=== PATIENT | female | born 1975 | race Caucasian/White ===

== ENCOUNTER 2020-11-21 08:49 | Outpatient (REF) | payer OTHER, SELFPAY ==
[2020-11-21 11:26] LABS: MANUAL DIFF FLAG NO
[2020-11-21 11:33] LABS: Basophils Percent Auto 0.7 % (0-2); Eosinophils Absolute Auto 0.2 X10*3/uL (0.0-0.4); Eosinophils Percent Auto 3.7 % (0-4); Hematocrit 42.3 % (37-47); Imm Gran Abs Auto 0.02 X10*3/uL (0.00-0.03); Imm Gran Pct Auto 0.3 % (0.0-0.4); Lymphocytes Absolute Auto 2.1 X10*3/uL (1.2-4.9); Lymphocytes Percent Auto 36.9 % (20-40); Mean Corpuscular HGB Conc 33.1 g/dl (31.0-35.0); Mean Corpuscular Hemoglobin 29.2 pg (27.0-33.0); Mean Corpuscular Volume 88.3 fL (80-98); Mean Platelet Volume 11.1 fL (9.4-12.3); Monocytes Absolute Auto 0.4 X10*3/uL (0.1-1.2); Monocytes Percent Auto 7.3 % (2-11); Neutrophils Absolute Auto 2.9 X10*3/uL (2.0-8.3); Neutrophils Percent Auto 51.1 % (45-73); Platelet Count 182 X10*3/uL (160-400); Red Blood Count 4.79 X10*6/uL (4.20-5.50); Red Cell Distribution Width 12.8 % (11.0-16.0); White Blood Count 5.7 X10*3/uL (4.8-10.8)
[2020-11-21 12:18] LABS: Alanine Aminotransferase 14 U/L (0-31); Anion Gap 14 (12-20); Aspartate Amino Transferase 15 U/L (5-31); Blood Urea Nitrogen 17 mg/dL (9-16); Calcium 9.4 mg/dL (8.4-10.2); Carbon Dioxide 23 mmol/L (22-29); Chloride 105 mmol/L (96-108); Cholesterol 177 mg/dL; Estimated Glomerular Filt Rate > 60; Glucose Fasting 82 mg/dL (60-99); HDL Cholesterol 65 mg/dL; LDL Cholesterol Calculated 96 mg/dl; Potassium 4.3 mmol/L (3.3-5.1); Sodium 138 mmol/L (135-145); Triglycerides 81 mg/dL
[2020-11-21 12:40] LABS: Vitamin D 25-OH Total 24.4 ng/mL (>30)
== END 2020-11-21 08:50 | disposition home or self-care (01) ==
LOC: HO.HMGCLDS 08:49
PROVIDERS: PCP Internal Medicine; Visit Provider Internal Medicine
DX: Z00.00 Encounter for general adult medical examination without abnormal findings (principal); I10 Essential (primary) hypertension
CPT/HCPCS: 36415; 80048; 80061; 82306; 84450; 84460; 85025

== ENCOUNTER 2021-11-21 09:03 | Outpatient (REF) | payer OTHER, SELFPAY ==
[2021-11-21 11:26] LABS: MANUAL DIFF FLAG NO
[2021-11-21 11:34] LABS: Basophils Percent Auto 0.7 % (0-2); Eosinophils Absolute Auto 0.2 X10*3/uL (0.0-0.4); Eosinophils Percent Auto 4.1 % (0-4); Hematocrit 41.7 % (37.0-47.0); Hemoglobin 13.8 g/dl (12.0-16.0); Imm Gran Abs Auto 0.01 X10*3/uL (0.00-0.03); Imm Gran Pct Auto 0.2 % (0.0-0.4); Lymphocytes Percent Auto 37.1 % (20-40); Mean Corpuscular HGB Conc 33.1 g/dl (31.0-35.0); Mean Corpuscular Hemoglobin 29.2 pg (27.0-33.0); Mean Corpuscular Volume 88.3 fL (80.0-98.0); Mean Platelet Volume 10.9 fL (9.4-12.3); Monocytes Absolute Auto 0.5 X10*3/uL (0.1-1.2); Neutrophils Absolute Auto 2.6 x10*3/uL (2.0-8.3); Neutrophils Percent Auto 48.9 % (45-73); Platelet Count 178 X10*3/uL (160-400); Red Blood Count 4.72 X10*6/uL (4.20-5.50); Red Cell Distribution Width 13.2 % (11.0-16.0); White Blood Count 5.3 X10*3/uL (4.8-10.8)
[2021-11-21 11:56] LABS: Cholesterol 184 mg/dL; Glucose Fasting 92 mg/dL (60-99); HDL Cholesterol 51 mg/dL; LDL Cholesterol Calculated 120 mg/dl; Triglycerides 65 mg/dL
[2021-11-21 12:21] LABS: Vitamin D 25-OH Total 29.6 ng/mL (>30)
== END 2021-11-21 09:04 | disposition home or self-care (01) ==
LOC: HO.WFDLDS 09:03
PROVIDERS: Visit Provider Internal Medicine
DX: Z00.01 Encounter for general adult medical examination with abnormal findings (principal); R42 Dizziness and giddiness
CPT/HCPCS: 36415; 80061; 82306; 82947; 85025

== ENCOUNTER 2022-02-07 11:00 | Outpatient (RCR) | payer OTHER, SELFPAY ==
[2021-12-06 14:03] VITALS: BP 130/70; PULSE 90; O2SAT 97
== END 2022-02-20 15:20 | disposition home or self-care (01) ==
LOC: HO.PTWFD 11:00
PROVIDERS: PCP Internal Medicine; Visit Provider Internal Medicine
DX: M25.562 Pain in left knee (principal); R42 Dizziness and giddiness
CPT/HCPCS: 95992; 97110; 97140; 97161

== ENCOUNTER 2022-11-20 13:51 | Outpatient (AMB) | payer OTHER, SELFPAY ==
--- NOTE | 2022-11-20 14:00 | A.OFFPC_ITS ---
<Statement entered by Cynthia Barcenas MD - 09/04/25 00:13> This note has been administratively?closed. Vital Signs 11/20/22 14:01 Height 5 ft 2 in Weight 195 lb 6 oz BMI 35.7 BP 108/76 Blood Pressure Location Rt brachial Position Sitting Pulse 90 Pulse Source Pulse Oximeter Pulse Oximetry (%) 99 Oxygen Delivery Method Room Air Intake Visit Reasons: Annual PE Intake Note: Pt is here for her annual PE Is last menstrual period known: Yes Last menstrual period: 11/14/22 Allergies No Known Allergies Allergy (Verified 08/14/25 11:12) Medication List - Last Reconciled 11/20/22 by Cynthia Barcenas MD albuterol sulfate 90 mcg/actuation 2 puffs inhalation Q6H PRN cholecalciferol (vitamin D3) 125 mcg PO DAILY multivitamin 1 tab PO DAILY zinc 50 mg PO DAILY Tobacco use date assessed: 11/20/22 HPI Annual PE HPI Details 47-year-old lady here today for physical exam. She is up-to-date with her screening mammogram, done 10/09/2022 with negative findings. She also is up-to-date with her cervical cancer screening done 12/09/2021 at [facility] with negative findings as well. She still gets her periods regularly, due now for colon cancer screening. Would like to see if she can get Cologuard testing set of the colonoscopy screening. She gets occasional wheezing a after exercise, would like a refill on her albuterol inhaler. 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 1. Little interest or pleasure in doing things: not at all 2. Feeling down, depressed, or hopeless: not at all 3. Trouble falling or staying asleep, or sleeping too much: several days 4. Feeling tired or having little energy: several days 5. Poor appetite or overeating: several days 6. Feeling bad about yourself - or that you are a failure or have let yourself or your family down: not at all 7. Trouble concentrating on things, such as reading the newspaper or watching television: not at all 8. Moving or speaking so slowly that other people could have noticed. Or the opposite - being so fidgety or restless that you have been moving around a lot more than usual: not at all 9. Thoughts that you would be better off or of hurting yourself in some way: not at all Total score: 3 Depression Screening Interpretation: Negative 81840 - PHQ-9 Billing: Yes Source: Developed by Drs. James Stanton, Shannan Salgado, Blue Tong and colleagues, with an educational luis enrique from [employer]. Thrive Questionnaire Date Thrive assessed: 11/13/21 AUDIT C Alcohol Use Questionnaire (AUDIT-C) 1. How often do you have a drink containing alcohol?: Monthly or less 2. How many drinks containing alcohol do you have on a typical day when you are drinking?: 1 or 2 3. How often do you have six or more drinks on one occasion?: Never Total Score: 1 YUNIOR-7 AMB Questionnaire YUNIOR-7 Date YUNIOR - 7 assessed: 11/13/21 Feeling nervous, anxious, or on edge: 1 = Several days Not being able to stop or control worryin = Not at all Worrying too much about different things: 0 = Not at all Trouble relaxin = Not at all Being so restless that it is hard to sit still: 0 = Not at all Becoming easily annoyed or irritable: 0 = Not at all Feeling afraid as if something awful might happen: 0 = Not at all Total YUNIOR-7 score (0-4 normal; 5-9 mild; 10-14 moderate; 15-21 severe): 1 Source: Developed by Drs. James Stanton, Shannan Salgado, Blue Tong and colleagues, with an educational luis enrique from [employer]. YUNIOR-7 Assessment Billing YUNIOR-7 Assessment Tool: YUNIOR-7 Assessment 80920 Review of Systems Const Denies body aches, Denies fatigue, Denies fever(s), Denies headache(s) and D enies weakness Eyes Reports change in vision ( difficulty with reading), Denies eye discharge and Denies itchy eyes ENT Denies headache(s), Denies nasal congestion, Denies nasal discharge and Denies sore throat Card Denies chest pain, Denies palpitations and Denies dyspnea Resp Denies chest congestion, Denies cough, Denies dyspnea and Denies wheezing GI Denies abdominal pain, Denies change in bowel habits and Denies heartburn Denies urinary frequency, Denies dysuria and Denies urinary urgency Musc Reports as per HPI and Denies back pain Skin/Breast Denies lesions and Denies rash Neuro Denies headache(s) and Denies weakness Psych Reports as per HPI Endo Denies fatigue, Denies polydipsia, Denies polyuria and Denies palpitations Ronni/Lymph Denies easy bruising Aller/Immun Denies itchy eyes, Denies seasonal rhinorrhea and Denies wheezing Physical exam (Primary Care) Vital Signs: Last Vital Signs Pulse 90 11/20/22 14:01 BP 108/76 11/20/22 14:01 Pulse Ox 99 11/20/22 14:01 Oxygen Delivery Method Room Air 11/20/22 14:01 BMI result Body Mass Index 35.7 BMI Assessment/Plan discussion: High BMI High, discussed plan: lifestyle, weight reduction, dietary and physical activity Tobacco/Smoking Status: Tobacco use Status Tobacco use date assessed 11/20/22 11/20/22 14:05 Patient Tobacco Use Status Never used Tobacco 11/20/22 14:05 e-Cigarette/Vaping Use Never Used 11/20/22 14:05 PHQ-9: PHQ-9 Score PHQ-9: Total score 3 05/02/24 02:12 Depression Screening Interpretation: Negative Thrive Assessment: Date of Thrive Assessment Date Thrive assessed 11/13/21 11/20/22 14:05 Const General: healthy appearing, comfortable, no acute distress and alert Nutritional Appearance: obese Orientation/consciousness: patient oriented x3 Limitations: no limitations HENMT Head: Yes normocephalic and Yes atraumatic Ears: hearing grossly normal bilaterally, TM's normal bilaterally and EAC's normal General nose exam: Normal external nose present and No nasal discharge present Face and sinus: Yes face symmetric Mouth: Normal oral and palatal mucosa present and moist mucous membranes Eyes General: appearance normal, both eyes and all related structures Neck Neck: Yes full ROM, Yes no lymphadenopathy and Yes supple Thyroid: Thyroid normal Chest Breast/axilla palpation: normal palpation of the breasts and normal palpation of the axillae Resp Auscultation: clear to auscultation bilaterally Cardio Other: S1-S2 present regular rate and rhythm GI Palpation (GI): Soft to palpation, nontender, no guarding and no masses Auscultation: normal bowel sounds General: Yes no CVA tenderness Back/Spine/Pelvis Back: no CVA tenderness and No back tenderness Skin General skin exam: no rashes or lesions noted Neuro General: patient oriented x3, gait normal, tone normal, moves all extremities, Normal light touch and pain sensation, no focal motor deficits and CN's II-XI intact bilaterally Extrem General: Yes full ROM, Yes no joint enlargement, Yes no pedal edema and Yes normal gait Psych Appearance: grossly normal and well kempt Mental Status: mental status grossly normal Speech and movement: Normal speech and movement present Affect: normal affect Attitude: cooperative Thought process: Normal thought process present Thought content: Normal thought content present Coding Level of Care Code Admin Sign Off/No Billing Diagnoses Annual visit for general adult medical examination with abnormal findings Z00.01 Additional Codes YUNIOR-7 Assessment Billing - YUNIOR-7 Assessment Tool: YUNIOR-7 Assessment 61752 ([id number])
[2022-11-20 14:01] VITALS: BP 108/76; PULSE 90; O2SAT 99; BMI 35.7
== END 2022-11-20 14:43 | disposition home or self-care (01) ==
PROVIDERS: PCP Internal Medicine; Visit Provider Internal Medicine
DX: Z00.01 Encounter for general adult medical examination with abnormal findings (principal)
CPT/HCPCS: 99499

== ENCOUNTER 2022-12-08 07:44 | Outpatient (REF) | payer OTHER, SELFPAY ==
[2022-12-08 11:13] LABS: MANUAL DIFF FLAG NO
[2022-12-08 11:38] LABS: Basophils Percent Auto 0.6 % (0-2); Eosinophils Absolute Auto 0.3 X10*3/uL (0.0-0.4); Eosinophils Percent Auto 3.7 % (0-4); Hematocrit 40.9 % (37.0-47.0); Hemoglobin 13.6 g/dl (12.0-16.0); Imm Gran Abs Auto 0.03 X10*3/uL (0.00-0.03); Imm Gran Pct Auto 0.4 % (0.0-0.4); Lymphocytes Absolute Auto 2.2 X10*3/uL (1.2-4.9); Lymphocytes Percent Auto 30.6 % (20-40); Mean Corpuscular HGB Conc 33.3 g/dl (31.0-35.0); Mean Corpuscular Hemoglobin 28.9 pg (27.0-33.0); Mean Corpuscular Volume 86.8 fL (80.0-98.0); Mean Platelet Volume 11.1 fL (9.4-12.3); Monocytes Absolute Auto 0.5 X10*3/uL (0.1-1.2); Neutrophils Absolute Auto 4.1 x10*3/uL (2.0-8.3); Neutrophils Percent Auto 57.7 % (45-73); Platelet Count 153 X10*3/uL (160-400); Red Blood Count 4.71 X10*6/uL (4.20-5.50); Red Cell Distribution Width 12.9 % (11.0-16.0); White Blood Count 7.1 X10*3/uL (4.8-10.8)
== END 2022-12-08 07:45 | disposition home or self-care (01) ==
LOC: HO.WFDLDS 07:44
PROVIDERS: Visit Provider Internal Medicine
DX: Z00.01 Encounter for general adult medical examination with abnormal findings (principal)
CPT/HCPCS: 36415; 85025

== ENCOUNTER 2024-04-27 10:55 | Outpatient (AMB) | payer OTHER, SELFPAY ==
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
[2024-04-27 11:44] VITALS: BP 120/86; PULSE 86; O2SAT 97; BMI 36.8
== END 2024-04-27 12:23 | disposition home or self-care (01) ==
PROVIDERS: PCP Internal Medicine; Visit Provider Internal Medicine
DX: J45.990 Exercise induced bronchospasm (principal); J30.2 Other seasonal allergic rhinitis; Z71.89 Other specified counseling; Z00.01 Encounter for general adult medical examination with abnormal findings; F41.8 Other specified anxiety disorders; Z00.00 Encounter for general adult medical examination without abnormal findings

== ENCOUNTER → 2024-04-27 10:55 | Outpatient (BNVA) | payer OTHER, SELFPAY | PROVIDERS: PCP Internal Medicine; Visit Provider Internal Medicine | DX: Z00.01 Encounter for general adult medical examination with abnormal findings (principal); J45.990 Exercise induced bronchospasm; J30.2 Other seasonal allergic rhinitis; F41.8 Other specified anxiety disorders; Z71.89 Other specified counseling | CPT/HCPCS: 96127 ==

== ENCOUNTER 2025-06-17 08:59 | Outpatient (REF) | payer OTHER, SELFPAY ==
[2025-06-17 10:18] LABS: Cholesterol 168 mg/dL (<200); HDL Cholesterol 67 mg/dL (>40); Triglycerides 56 mg/dL (<150)
== END 2025-06-17 09:00 | disposition home or self-care (01) ==
LOC: HO.LAB 08:59
PROVIDERS: PCP Internal Medicine; Visit Provider Internal Medicine
DX: Z13.220 Encounter for screening for lipoid disorders (principal); Z13.1 Encounter for screening for diabetes mellitus; Z13.6 Encounter for screening for cardiovascular disorders
CPT/HCPCS: 36415; 80061; 82947

== ENCOUNTER 2025-06-19 12:57 | Outpatient (AMB) | payer OTHER, SELFPAY ==
--- NOTE | 2025-06-19 13:07 | MHC.PC.OV ---
Vital Signs 06/19/25 13:13 Height 5 ft 2 in Weight 193 lb BMI 35.3 BP 110/80 Blood Pressure Location Rt brachial Position Sitting Respiration 15 Pulse 72 Pulse Source Pulse Oximeter Temp 98.0 F Temp Source Oral Pulse Oximetry (%) 99 Oxygen Delivery Method Room Air Intake Visit Reasons: PE elizabeth 05/25 Intake Note: Pt is here today for her PE: last cologuard 03/07/25, papsmear 12/09/21, mammogram 10/18/2024 Budget Accountant Required: No Allergies No Known Allergies Allergy (Verified 04/27/24 11:55) Medication List - Last Reconciled 06/25/25 by Cynthia Barcenas MD albuterol sulfate 90 mcg/actuation 2 puffs inhalation Q6H PRN buspirone 5 mg PO TID multivitamin 1 tab PO DAILY zinc 50 mg PO DAILY Tobacco use date assessed: 06/19/25 Dental Screening Dental Screen Date: 06/19/25 Did you have a dental visit in the last 12 months?: Yes Did you have a dental problem in the last 6 months where you did not have access to dental care?: No Was dental information given to patient?: Patient has dentist HPI PE elizabeth 05/25 HPI Details The patient is a 50-year-old female presenting for her physical exam. The patient has been experiencing a prolonged grief reaction with symptoms of depression and anxiety since her partner of 24 years in October of this year. Her partner, who was 48, had a history of a significant drinking problem, which led to seizures from withdrawal and a fatal fall. 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 Her sleep is disrupted, with frequent awakenings throughout the night. The patient reports feelings of guilt related to having asked her partner to leave the home due to his violent behavior when intoxicated before he . She and her 12-year-old daughter are both in therapy to cope with the loss. In terms of health maintenance, the patient's Cologuard was negative and is not due until 2027, and her mammogram is up to date. Her last Pap smear was in 2021. She declines the COVID and influenza vaccines. She has a history of COVID-19 infection. Recent lab work showed improved cholesterol and blood sugar levels. The patient experienced significant weight loss due to stress, and is now more active than she used to be. The patient was sick a few weeks ago with a cough that has since resolved, but she has new-onset wheezing at night. [facility] Medical History Anxiety with depression Exercise induced bronchospasm Seasonal allergies Benign positional vertigo Personal history of COVID-19 Left anterior knee pain History of miscarriage Surgical History Hx of section Family History Father Alcoholism Essential hypertension Maternal Grandmother Lung cancer Maternal Grandfather Heart disease Social History Housing: House Alcohol intake: current Alcohol intake frequency: holidays/special occasions only Patient Tobacco Use Status: Never used Tobacco e-Cigarette/Vaping Use: Never Used service: No Current occupational status: employed 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 1. Little interest or pleasure in doing things: more than half the days 2. Feeling down, depressed, or hopeless: nearly every day 3. Trouble falling or staying asleep, or sleeping too much: more than half the days 4. Feeling tired or having little energy: nearly every day 5. Poor appetite or overeating: more than half the days 6. Feeling bad about yourself - or that you are a failure or have let yourself or your family down: several days 7. Trouble concentrating on things, such as reading the newspaper or watching television: several days 8. Moving or speaking so slowly that other people could have noticed. Or the opposite - being so fidgety or restless that you have been moving around a lot more than usual: several days 9. Thoughts that you would be better off or of hurting yourself in some way: not at all Total score: 15 Depression Screening Interpretation: Positive Depression Screening Done: Yes 06650 - PHQ-9 Billing: Yes Source: Developed by Drs. James Stanton, Shannan Salgado, Blue Tong and colleagues, with an educational luis enrique from [employer]. Thrive Questionnaire Date Thrive assessed: 06/19/25 I am a: Patient What is your living situation today?: I have a steady place to live Within the past 12 months, did the food you bought not last and you didn't have the money to get more?: Never true Within the past 12 months, did you worry whether your food would run out before you got money to buy more?: Never true Do you have trouble paying for medicines?: No Do you have trouble getting transportation to medical appointments?: No Do you have trouble paying your heating and electricity bill?: No Do you have trouble taking care of your child, family member or friend?: No Do you have trouble with day-to-day activities such as bathing, preparing meals, shopping, managing finances, etc.?: No Are you currently unemployed and looking for a job?: No Are you interested in more education?: No Please select the resources that you would like help with: None Currently or been in a relationship where the following occur: No concerns reported THRIVE Score: 0 AUDIT C Alcohol Use Questionnaire (AUDIT-C) 1. How often do you have a drink containing alcohol?: Never Total Score: 0 Score Reviewed/Action Taken: Yes YUNIOR-7 AMB Questionnaire YUNIOR-7 Date YUNIOR - 7 assessed: 06/19/25 Feeling nervous, anxious, or on edge: 2 = More than half the days Not being able to stop or control worryin = More than half the days Worrying too much about different things: 2 = More than half the days Trouble relaxin = More than half the days Being so restless that it is hard to sit still: 2 = More than half the days Becoming easily annoyed or irritable: 2 = More than half the days Feeling afraid as if something awful might happen: 2 = More than half the days Total YUNIOR-7 score (0-4 normal; 5-9 mild; 10-14 moderate; 15-21 severe): 14 Source: Developed by Shannan Lechuga, Blue Tong and colleagues, with an educational luis enrique from [employer]. YUNIOR-7 Assessment Billing YUNIOR-7 Assessment Tool: YUNIOR-7 Assessment 98861 Review of Systems Const Denies body aches, Denies fatigue, Denies fever(s), Denies headache(s) and Denies weakness Eyes Reports change in vision ( difficulty with reading) ENT Denies headache(s), Denies nasal congestion, Denies nasal discharge and Denies sore throat Card Denies chest pain, Denies palpitations and Denies dyspnea Resp Denies chest congestion, Denies cough, Denies dyspnea and Reports wheezing (occasional at night , resolving ) GI Denies abdominal pain, Denies change in bowel habits and Denies heartburn Denies urinary frequency, Denies dysuria and Denies urinary urgency Skin/Breast Denies lesions and Denies rash Neuro Denies headache(s) and Denies weakness Psych Reports as per HPI Endo Denies fatigue, Denies polydipsia, Denies polyuria and Denies palpitations Ronni/Lymph Denies easy bruising Aller/Immun Denies seasonal rhinorrhea and Reports wheezing (occasional at night , resolving ) Physical exam (Primary Care) Vital Signs: Last Vital Signs Temp 98.0 F 06/19/25 13:13 Pulse 72 06/19/25 13:13 Resp 15 06/19/25 13:13 BP 110/80 06/19/25 13:13 Pulse Ox 99 06/19/25 13:13 Oxygen Delivery Method Room Air 06/19/25 13:13 BMI result Body Mass Index 35.3 Tobacco/Smoking Status: Tobacco use Status Tobacco use date assessed 06/19/25 06/19/25 13:16 Patient Tobacco Use Status Never used Tobacco 06/19/25 13:07 e-Cigarette/Vaping Use Never Used 06/19/25 13:07 PHQ-9: PHQ-9 Score PHQ-9: Total score 15 06/19/25 13:21 Depression Screening Interpretation: Positive Thrive Assessment: Date of Thrive Assessment Date Thrive assessed 06/19/25 06/19/25 13:46 Currently or been in a relationship where the following occur: No concerns reported Const General: comfortable, no acute distress and alert Nutritional Appearance: obese Orientation/consciousness: patient oriented x3 HENMT Head: Yes normocephalic Ears: hearing grossly normal bilaterally, TM's normal bilaterally and EAC's normal General nose exam: Normal external nose present and No nasal discharge present Face and sinus: Yes face symmetric Mouth: moist mucous membranes Eyes General: appearance normal, both eyes and all related structures Neck Neck: Yes full ROM, Yes no lymphadenopathy and Yes supple Thyroid: Thyroid normal Chest Breast/axilla palpation: normal palpation of the breasts and normal palpation of the axillae Resp Auscultation: clear to auscultation bilaterally Cardio Other: S1-S2 present regular rate and rhythm GI Palpation (GI): Soft to palpation, nontender, no guarding and no masses Auscultation: normal bowel sounds General: Yes no CVA tenderness Back/Spine/Pelvis Back: no CVA tenderness and No back tenderness Skin General skin exam: no rashes or lesions noted Neuro General: patient oriented x3, gait normal, tone normal, moves all extremities, Normal light touch and pain sensation, no focal motor deficits and CN's II-XI intact bilaterally Extrem General: Yes full ROM, Yes no joint enlargement, Yes no pedal edema and Yes normal gait Psych Appearance: grossly normal and well kempt Mental Status: mental status grossly normal Speech and movement: Normal speech and movement present Affect: normal affect Results Reviewed Results Reviewed: Name: Kim Grossman Age/Sex: 50/F : 1975 Unit#: [id number] Attend Dr: Cynthia Barcenas MD Re06/17/25 Status: DEP REF Location: [facility] Disch: SPEC : [id number] ALBINO: 06/17/25 STATUS: COMP REQ : [id number] RECD: 06/17/[address]: Cynthia Barcenas MD COMP: 06/17/258 ENTERED: 06/17/25 [facility] DR: ORDERED: Glu Fasting, Lipid Panel Test Result Flag Reference FBS 76 60-99 mg/dL Triglyceride 56 <150 mg/dL Desirable Triglyceride: less than 150 mg/dL Borderline High Triglyceride 150-199 mg/dL High Triglyceride: 200-499 mg/dL Very High Triglyceride: greater than or equal to 5OO mg/dL Cholesterol 168 <200 mg/dL Desirable Cholesterol: less than 200 mg/dL Borderline High Cholesterol: 200-239 mg/dL High Cholesterol: greater than 239 mg/dL LDL Calculated 90 <100 mg/dL Desirable LDL: less than 100 mg/dL Near Optimal/Above Optimal LDL: 110-129 mg/dL Borderline High LDL: 130-159 mg/dL High LDL: 160-189 mg/dL Very High LDL: greater than or equal to 190 mg/dL HDL 67 >40 mg/dL Desirable HDL: greater than 40 mg/dL Note: This HDL assay may give artificially low results in patients with liver disease. Coding Level of Care Code Est Pt Prev Care 40-64y(42972) Diagnoses Anxiety with depression F41.8 Exercise induced bronchospasm J45.990 Annual visit for general adult medical examination with abnormal findings Z00.01 Additional Codes YUNIOR-7 Assessment Billing - YUNIOR-7 Assessment Tool: YUNIOR-7 Assessment 89510 ([id number]) PHQ-9 - 59632 - PHQ-9 Billing: Yes ([id number]) Assessment & Plan Assessment & Plan (1) Anxiety with depression: Code(s): F41.8 - Other specified anxiety disorders Category: Medical (2) Exercise induced bronchospasm: Code(s): J45.990 - Exercise induced bronchospasm Category: Medical (3) Annual visit for general adult medical examination with abnormal findings: Code(s): Z00.01 - Encounter for general adult medical examination with abnormal findings Plan 1. Prolonged Grief Reaction, Anxiety, and Depression The patient is experiencing significant emotional distress with symptoms of depression, anxiety, panic, and sleep disturbance more than six months after the of her partner, which is interfering with her daily activities. She is engaged in therapy. Due to the prolonged nature of her symptoms and the upcoming holidays, a trial of medication is warranted. Start buspirone 5 mg, initially one tablet at night for one week, then increasing to twice daily. The dosage can be adjusted up to three times a day as needed. She was advised to avoid alcohol. A telehealth follow-up visit is scheduled in four weeks to assess her response. 2. Wheezing The patient reports new nocturnal wheezing following a recent illness. This is likely due to post-viral bronchial hyperreactivity, exacerbated by the change in weather. An albuterol inhaler has been prescribed for as-needed use. 3. Annual visit for general exam with abnormal findings The patient is up-to-date with her Cologuard, mammogram, and Pap smear screenings. She has declined the influenza and COVID-19 vaccines for this season. Her tetanus (Tdap) was in 2012; she will defer a booster for now. Recent labs show an improvement in cholesterol levels, which is encouraging. Recommended continuing with current lifestyle modifications, including increased activity. Patient was informed and verbally consented to the use of an ambient scribe for clinic note documentation during this visit. Medications: New buspirone 5 mg PO TID 90 tabs 0RF Refilled albuterol sulfate 90 mcg/actuation 2 puffs inhalation Q6H PRN 8.5 grams 3RF shortness of breath or wheezing
[2025-06-19 13:13] VITALS: BP 110/80; PULSE 72; RESP 15; TEMP 36.7; O2SAT 99; BMI 35.3
== END 2025-06-19 13:52 | disposition home or self-care (01) ==
LOC: HO.HMCC 12:58
PROVIDERS: PCP Internal Medicine; Visit Provider Internal Medicine
DX: F41.8 Other specified anxiety disorders (principal); J45.990 Exercise induced bronchospasm; Z00.01 Encounter for general adult medical examination with abnormal findings

== ENCOUNTER → 2025-06-19 12:57 | Outpatient (BNVA) | payer OTHER, SELFPAY | PROVIDERS: PCP Internal Medicine; Visit Provider Internal Medicine | DX: Z00.01 Encounter for general adult medical examination with abnormal findings (principal); F41.8 Other specified anxiety disorders; J45.990 Exercise induced bronchospasm; Z13.31 Encounter for screening for depression; Z13.39 Encounter for screening examination for other mental health and behavioral disorders; Z86.16 Personal history of COVID-19 | CPT/HCPCS: 96127 ==

== ENCOUNTER 2025-07-18 15:36 | Outpatient (AMB) | payer OTHER, SELFPAY ==
--- NOTE | 2025-07-18 15:35 | MHC.PC.OV ---
Intake Visit Reasons: 4 weeks f/up-telehealth ok per Dr Rae Parts Driver Required: No Allergies No Known Allergies Allergy (Verified 07/18/25 15:51) Medication List - Last Reconciled 07/18/25 by Cynthia Barcenas MD albuterol sulfate 90 mcg/actuation 2 puffs inhalation Q6H PRN buspirone 5 mg PO TID multivitamin 1 tab PO DAILY zinc 50 mg PO DAILY Tobacco use date assessed: 07/18/25 Dental Screening Dental Screen Date: 07/18/25 Did you have a dental visit in the last 12 months?: Yes Did you have a dental problem in the last 6 months where you did not have access to dental care?: No Was dental information given to patient?: Patient has dentist HPI 4 weeks f/up-telehealth ok per Dr Rae HPI Details The patient is a 50 year old female presenting for a follow-up anxiety and depression via telehealth. The patient reports that the buspirone is helping with her sleep, and she has been sleeping much better. She feels it has taken the edge off her anxiety, but she has been feeling very sad and low with her depression, which she thinks may be related to the holidays. She has been taking buspirone 5 mg once at bedtime initially and has just started taking it 1 tablet 3 times a day less than a week ago. [facility] Medical History Anxiety with depression Exercise induced bronchospasm Seasonal allergies Benign positional vertigo Personal history of COVID-19 Left anterior knee pain History of miscarriage Surgical History Hx of section Family History Father Alcoholism Essential hypertension Maternal Grandmother Lung cancer Maternal Grandfather Heart disease Social History Housing: House Alcohol intake: current Alcohol intake frequency: holidays/special occasions only Patient Tobacco Use Status: Never used Tobacco e-Cigarette/Vaping Use: Never Used service: No Current occupational status: employed 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 1. Little interest or pleasure in doing things: several days 2. Feeling down, depressed, or hopeless: several days 3. Trouble falling or staying asleep, or sleeping too much: not at all 4. Feeling tired or having little energy: several days 5. Poor appetite or overeating: several days 6. Feeling bad about yourself - or that you are a failure or have let yourself or your family down: not at all 7. Trouble concentrating on things, such as reading the newspaper or watching television: several days 8. Moving or speaking so slowly that other people could have noticed. Or the opposite - being so fidgety or restless that you have been moving around a lot more than usual: several days 9. Thoughts that you would be better off or of hurting yourself in some way: not at all Total score: 6 Depression Screening Interpretation: Positive Depression Screening Done: Yes 52846 - PHQ-9 Billing: Yes (Has been seeing her therapist at [facility] now increased to weekly basis, and continues on Buspirone) Source: Developed by Drs. James Stanton, Blue Johnson and colleagues, with an educational luis enrique from [employer]. Thrive Questionnaire Date Thrive assessed: 06/19/25 YUNIOR-7 AMB Questionnaire YUNIOR-7 Date YUNIOR - 7 assessed: 06/19/25 Source: Developed by Drs. James Stanton, Blue Johnson and colleagues, with an educational luis enrique from [employer]. Review of Systems Const Denies headache(s) and Denies weakness ENT Denies headache(s) and Denies nasal congestion Card Denies chest pain and Denies dyspnea Resp Denies chest congestion, Denies cough and Denies dyspnea GI Denies abdominal pain, Denies change in bowel habits and Denies heartburn Denies urinary frequency, Denies dysuria and Denies urinary urgency Skin/Breast Denies lesions and Denies rash Neuro Denies headache(s) and Denies weakness Psych Reports as per HPI Ronni/Lymph Denies easy bruising Aller/Immun Denies seasonal rhinorrhea Physical exam (Primary Care) Tobacco/Smoking Status: Tobacco use Status Tobacco use date assessed 07/18/25 07/18/25 15:36 Patient Tobacco Use Status Never used Tobacco 07/18/25 15:36 e-Cigarette/Vaping Use Never Used 07/18/25 15:36 Depression Screening Interpretation: Positive Thrive Assessment: Date of Thrive Assessment Date Thrive assessed 06/19/25 07/18/25 15:36 Telehealth Telehealth Telehealth Platform: [employer] Location of provider rendering services: practice address Location of patient: address on file Patient Identification confirmed using: Name, : Yes Telehealth method: video Patient verbally consented to treatment: Yes Patient verbally consented to billing insurance company: Yes Coding Level of Care Code Tele Est Pt Level 4 (99182) Diagnoses Anxiety with depression F41.8 Additional Codes PHQ-9 - 28691 - PHQ-9 Billing: Yes ([id number]) Assessment & Plan Assessment & Plan (1) Anxiety with depression: Code(s): F41.8 - Other specified anxiety disorders Category: Medical Plan: Continue with buspirone, but try increasing buspirone dose to 10 mg in the morning and continue with 5 mg at bedtime. Continue getting therapy once a week. Prescription sent for refills on her buspirone, will see her back via telehealth on August 14 at 10:30 in the morning Medications: Refilled buspirone 5 mg PO TID 90 tabs 1RF
== END 2025-07-18 16:01 | disposition home or self-care (01) ==
LOC: HO.HMCC 15:36
PROVIDERS: PCP Internal Medicine; Visit Provider Internal Medicine
DX: F41.8 Other specified anxiety disorders (principal)

== ENCOUNTER → 2025-07-18 15:36 | Outpatient (BNVA) | payer OTHER, SELFPAY | PROVIDERS: PCP Internal Medicine; Visit Provider Internal Medicine | DX: F41.8 Other specified anxiety disorders (principal); Z13.31 Encounter for screening for depression | CPT/HCPCS: 96127 ==